=== PATIENT | female | born 1975 | race Two or more races ===

== ENCOUNTER 2018-08-25 16:54 | Emergency (ER) | payer MEDICAID ==
[~2018-08-25] VITALS: Ht 157.5 cm; Wt 90.7 kg
[2018-08-25] MEDS ORDERED: KETOROLAC TROMETH 60MG/2ML VIAL IM ONE (23:00)
[2018-08-25] MEDS ORDERED: cefTRIAXone SOD 1,000 MG VL IM ONE (23:00)
[2018-08-25 23:15] VITALS: BP 131/84
== END 2018-08-25 23:24 | disposition home or self-care (01) ==
LOC: ER 17:08
DX: S02.5XXA Fracture of tooth (traumatic), initial encounter for closed fracture (principal); K04.7 Periapical abscess without sinus; Z88.6 Allergy status to analgesic agent; X58.XXXA Exposure to other specified factors, initial encounter; Y93.89 Activity, other specified; Y92.89 Other specified places as the place of occurrence of the external cause; Y99.8 Other external cause status
CPT/HCPCS: 96372; 99283; J0696; J1885